=== PATIENT | male | born 1960 | race Hispanic/Latino ===

== ENCOUNTER 2016-05-24 18:40 | Emergency (ER) | payer OTHER ==
[2016-05-24 18:45] VITALS: BP 160/76; PULSE 81; RESP 18; TEMP 97.6; O2SAT 99
--- NOTE | 2016-05-24 18:58 | ED PDOC ---
Upper Extremity Pain/Injury Time Seen by Provider: 05/24/16 18:48 Chief Complaint (Nursing): Upper Extremity Problem/Injury Chief Complaint (Provider): Rt Shoulder Pain History Per: Patient History/Exam Limitations: no limitations Onset/Duration Of Symptoms: Hrs Current Symptoms Are (Timing): Still Present Severity: Mild Additional Complaint(s): Patient is a 56 year old male presenting to the ED complaining of right shoulder pain status post fall this morning. Patient reports he slipped on ice and fell directly onto his right shoulder. Patient reports worsening pain since this morning. PMD: none Past Medical History Reviewed: Historical Data, Nursing Documentation, Vital Signs Vital Signs: Last Vital Signs Temp 97.6 F 05/24/16 18:42 Pulse 81 05/24/16 18:42 Resp 18 05/24/16 18:42 BP 160/76 H 05/24/16 18:42 Pulse Ox 99 05/24/16 18:42 - Medical History PMH: No Chronic Diseases - Family History Family History: States: No Known Family Hx - Home Medications Home Medications: Ambulatory Orders Medication Instructions Recorded Acetaminophen with Codeine 1 tab PO Q6H PRN #15 tab 05/24/16 [Tylenol with Codeine No. 3 300 mg-30 mg] - Allergies Allergies/Adverse Reactions: Allergies Allergy/AdvReac Type Severity Reaction Status Date / Time aspirin Allergy VOMITING Verified 05/24/16 18:45 Review of Systems ROS Statement: Except As Marked, All Systems Reviewed And Found Negative Constitutional: Negative for: Fever Musculoskeletal: Positive for: Shoulder Pain (rt) Physical Exam - Reviewed Nursing Documentation Reviewed: Yes Vital Signs Reviewed: Yes - Physical Exam Appears: Positive for: Well, Non-toxic, No Acute Distress Head Exam: Positive for: ATRAUMATIC, NORMAL INSPECTION, NORMOCEPHALIC Skin: Positive for: Normal Color, Warm, DRY Eye Exam: Positive for: EOMI, Normal appearance, PERRL Cardiovascular/Chest: Positive for: Regular Rate, Rhythm. Negative for: Gallop , Murmur Respiratory: Positive for: Normal Breath Sounds. Negative for: Accessory Muscle Use, Rhonchi, Respiratory Distress Extremity: Positive for: Tenderness (acromium process tenderness to right shoulder). Negative for: Normal ROM (limited ROM secondary to pain) Neurologic/Psych: Positive for: Alert, Oriented - ECG O2 Sat by Pulse Oximetry: 99 (RA) Pulse Ox Interpretation: Normal Medical Decision Making Medical Decision Making: Time: 18:50 Impression: 56 y/o male with rt shoulder pain r/o Fx Plan: XR Rt Shoulder tylenol with Codeine 1 tab PO X-ray without acute findings, reviewed with Dr. Vicki Landry Attestation: Documented by Vonnie Ortega acting as a scribe for Azalia Kunz. Provider Attestation: All medical record entries made by the Scribe were at my direction and personally dictated by me. I have reviewed the chart and agree that the record accurately reflects my personal performance of the history, physical exam, medical decision making, and the department course for this patient. I have also personally directed, reviewed, and agree with the discharge instructions and disposition. Disposition - Clinical Impression Clinical Impression: Shoulder injury - Patient ED Disposition Is Patient to be Admitted: No Counseled Patient/Family Regarding: Diagnosis, Need For Followup, Rx Given - Disposition Referrals: Junior Salas MD [Staff Provider] - Disposition: Routine/Home Disposition Time: 20:02 Condition: GOOD Prescriptions: Acetaminophen with Codeine [Tylenol with Codeine No. 3 300 mg-30 mg] 1 tab PO Q6H PRN #15 tab PRN Reason: Pain, Severe (8-10) Instructions: Shoulder Sprain (ED)
[2016-05-24] MEDS ORDERED: Acetaminophen-Codeine 300/30 mg Tab ONE (19:04)
[2016-05-24] MEDS ORDERED: Acetaminophen-Codeine 300/30 mg Tab PO STA (19:09)
--- NOTE | 2016-05-25 11:51 | RAD ---
PROCEDURE: Radiographs of the Right Shoulder HISTORY: pain s/p fall COMPARISON: No prior. FINDINGS: BONES: There is mild bone demineralization. There is no acute fracture or bone destruction. JOINTS: Normal. Glenohumeral and acromioclavicular joints preserved. No osteoarthritis. SOFT TISSUES: NormalThere is linear calcification superior to the greater tuberosity of the humerus which may represent calcific tendinitis. OTHER FINDINGS: None. IMPRESSION: No acute fracture or dislocation.
== END 2016-05-24 20:39 | disposition home or self-care (01) ==
LOC: H.ER 18:40
DX: M25.511 Pain in right shoulder (principal)

== ENCOUNTER 2017-06-10 09:59 | Emergency (ER) | payer MEDICAID, OTHER ==
[2017-06-10 10:05] VITALS: BMI 29.2
[2017-06-10 10:06] VITALS: BP 183/91; PULSE 80; RESP 20; TEMP 97.6; O2SAT 100
[2017-06-10] MEDS ORDERED: Lidocaine 5% Patch TD STA (10:34)
--- NOTE | 2017-06-10 10:41 | ED PDOC ---
HPI: Back Time Seen by Provider: 06/10/17 10:18 Chief Complaint (Nursing): Back Pain Chief Complaint (Provider): back pain History Per: Patient History/Exam Limitations: no limitations Onset/Duration Of Symptoms: Days (years) Additional Complaint(s): Pt. with low back pain, ongoing for years. No new injury today. No numbness, tingles, weakness, incontinence, constipation. Ambulates with the pain. Pain goes to both knees. No calf pain. No cough, chest pain, dyspnea. No abd pain , dysuria. Does not take any meds for it. Homeless. Past Medical History Reviewed: Nursing Documentation, Vital Signs Vital Signs: Last Vital Signs Temp 97.6 F 06/10/17 10:05 Pulse 80 06/10/17 10:05 Resp 20 06/10/17 10:05 BP 183/91 H 06/10/17 10:05 Pulse Ox 100 06/10/17 10:05 - Medical History PMH: Anxiety, Back Problems, Depression, Diabetes (?), Hepatitis (Pt history and treatment), HTN, Kidney Stones Denies: HIV (Patient denied), Chronic Kidney Disease, Seizures (Patient denied), Sexually Transmitted Disease (Patient denied) - Family History Family History: States: Unknown Family Hx - Immunization History Hx Tetanus Toxoid Vaccination: No Hx Influenza Vaccination: No Hx Pneumococcal Vaccination: No - Home Medications Home Medications: Ambulatory Orders Medication Instructions Recorded Sertraline [Zoloft] 50 mg PO DAILY #30 tab 09/28/16 traZODone [Desyrel] 100 mg PO HS #30 tab 09/28/16 Ibuprofen [Motrin] 600 mg PO TID 7 Days tab 06/10/17 Lidocaine 5% [Lidoderm] 1 ea TD DAILY PRN #5 patch 06/10/17 - Allergies Allergies/Adverse Reactions: Allergies Allergy/AdvReac Type Severity Reaction Status Date / Time aspirin Allergy VOMITING Verified 05/24/16 18:45 Review of Systems ROS Statement: Except As Marked, All Systems Reviewed And Found Negative Musculoskeletal: Positive for: Back Pain, Leg Pain Physical Exam - Reviewed Nursing Documentation Reviewed: Yes Vital Signs Reviewed: Yes - Physical Exam Appears: Positive for: Non-toxic, No Acute Distress Head Exam: Positive for: ATRAUMATIC, NORMAL INSPECTION, NORMOCEPHALIC Skin: Positive for: Normal Color, Warm, DRY Neck: Positive for: Normal, Painless ROM Cardiovascular/Chest: Positive for: Regular Rate, Rhythm Respiratory: Positive for: CNT, Normal Breath Sounds Gastrointestinal/Abdominal: Positive for: Normal Exam, Bowel Sounds, Soft. Negative for: Tenderness Back: Positive for: Other (mild tender across lower back; straight leg pos at 60 * b/l). Negative for: L CVA Tenderness, R CVA Tenderness Extremity: Positive for: Normal ROM. Negative for: Tenderness, Pedal Edema Neurologic/Psych: Positive for: Alert, Oriented. Negative for: Motor/Sensory Deficits - ECG O2 Sat by Pulse Oximetry: 100 Pulse Ox Interpretation: Normal - Progress ED Course And Treament: 2308: Stable. AAOx3. Pain free. Tolerated PO. Fu with pcp. Ambulated with no issues. Disposition - Clinical Impression Clinical Impression: Chronic back pain - Patient ED Disposition Is Patient to be Admitted: Yes Counseled Patient/Family Regarding: Studies Performed, Diagnosis, Need For Followup, Rx Given - Disposition Referrals: [facility] [Outside] - 06/11/17 Disposition: Routine/Home Disposition Time: 11:10 Condition: STABLE Additional Instructions: Return if not better in 3 days. Prescriptions: Ibuprofen [Motrin] 600 mg PO TID 7 Days tab Lidocaine 5% [Lidoderm] 1 ea TD DAILY PRN #5 patch PRN Reason: Pain, Moderate (4-7) Instructions: Chronic Pain
== END 2017-06-10 11:20 | disposition home or self-care (01) ==
LOC: H.ER 09:59
DX: M54.9 Dorsalgia, unspecified (principal); G89.29 Other chronic pain; E11.9 Type 2 diabetes mellitus without complications

== ENCOUNTER 2017-10-30 18:52 | Emergency (ER) | payer MEDICAID, OTHER ==
[2017-10-30 18:52] VITALS: BMI 28.0
[2017-10-30 19:00] VITALS: TEMP 98.2
[2017-10-30 19:59] LABS: INR 1.3; PROTHROMBIN TIME 14.1 Seconds (9.8-13.1)
[2017-10-30 20:01] LABS: PARTIAL THROMBOPLASTIN TIME 37.5 Seconds (25.6-37.1)
[2017-10-30 20:36] LABS: ALB/GLOB RATIO 0.8 (1.0-2.1); ALBUMIN 3.6 g/dL (3.5-5.0); ALT/SGPT 70 U/L (21-72); AST/SGOT 174 U/L (17-59); BLOOD UREA NITROGEN 9 mg/dl (9-20); CALCIUM 9.4 mg/dL (8.4-10.2); GFR NON-AFRICAN AMERICAN > 60; LIPASE 68 U/L (23-300)
[2017-10-30 20:46] LABS: BASO # 0.2 K/uL (0.0-0.2); BASO % 1.9 % (0.0-2.0); EOS # 0.2 K/uL (0.0-0.7); EOS % 2.2 % (0.0-4.0); HEMOGLOBIN 10.5 g/dL (12.0-18.0); LYMPH # 2.5 K/uL (1.0-4.3); LYMPH % 24.4 % (20.0-40.0); MEAN CELL VOLUME 93.7 fl (80.0-94.0); MEAN CORPUSCULAR HEMOGLOBIN 32.1 pg (27.0-31.0); MEAN CORPUSCULAR HGB CONC 34.3 g/dL (33.0-37.0); MEAN PLATELET VOLUME 10.6 fl (7.2-11.7); MONO # 0.6 K/uL (0.0-0.8); MONO % 5.6 % (0.0-10.0); NEUT # 6.7 K/uL (1.8-7.0); NEUT % 65.9 % (50.0-75.0); NRBC % 0.1 % (0.0-0.0); RBC 3.26 Mil/uL (4.40-5.90); RED CELL DISTRIBUTION WIDTH 15.1 % (11.5-14.5); WHITE BLOOD COUNT 10.2 K/uL (4.8-10.8)
[2017-10-30] MEDS ORDERED: Iohexol 300 100 ML IJ ONE (21:47)
[2017-10-30] MEDS ORDERED: Sodium Chloride 0.9% 50 ML IV ONE (21:47)
--- NOTE | 2017-10-30 23:38 | ED PDOC ---
HPI: Abdomen Time Seen by Provider: 10/30/17 19:06 Chief Complaint (Nursing): Abdominal Pain Chief Complaint (Provider): Abdominal Pain History Per: Patient History/Exam Limitations: no limitations Onset/Duration Of Symptoms: Days (x1) Current Symptoms Are (Timing): Still Present Additional Complaint(s): 57 year old male with recent diagnosis of liver cancer presents to ED with complaints of lower, right abdominal pain ongoing since this morning. Patient is a poor historian, thus, history obtained from a recent [facility] admission in 10/2017. He reports a pending evaluation at [facility]. Otherwise: no vomiting, diarrhea, nausea, syncope, fever, or bloody stools. PMD: Dr. Mary Arce Past Medical History Reviewed: Historical Data, Nursing Documentation, Vital Signs Vital Signs: Last Vital Signs Temp 98.2 F 10/30/17 18:58 Pulse 67 10/30/17 18:58 Resp 16 10/30/17 18:58 BP 161/76 H 10/30/17 18:58 Pulse Ox 100 10/30/17 23:54 - Medical History PMH: Anxiety, Back Problems, Depression, Diabetes (?), Gastritis (Gall stones), Hepatitis (Pt history and treatment), HTN, Kidney Stones, Chronic Kidney Disease Denies: HIV (Patient denied), Seizures (Patient denied), Sexually Transmitted Disease (Patient denied) - Family History Family History: States: Unknown Family Hx - Immunization History Hx Tetanus Toxoid Vaccination: Yes Hx Influenza Vaccination: No Hx Pneumococcal Vaccination: No - Home Medications Home Medications: Ambulatory Orders Medication Instructions Recorded Apixaban [Eliquis] 5 mg PO BID #60 tab 10/04/17 oxyCODONE [oxyCODONE Immediate 15 mg PO QID #20 tab 10/04/17 Release Tab] Tamsulosin [Flomax] 0.4 mg PO DAILY #30 cap 10/22/17 - Allergies Allergies/Adverse Reactions: Allergies Allergy/AdvReac Type Severity Reaction Status Date / Time aspirin AdvReac VOMITING Verified 10/30/17 18:58 Review of Systems ROS Statement: Except As Marked, All Systems Reviewed And Found Negative Constitutional: Negative for: Fever Gastrointestinal: Positive for: Abdominal Pain (RLQ). Negative for: Nausea, Vomiting, Diarrhea, Hematochezia Neurological: Negative for: Other (syncope) Physical Exam - Reviewed Nursing Documentation Reviewed: Yes Vital Signs Reviewed: Yes - Physical Exam Appears: Positive for: No Acute Distress (chronic-ill appearance) Head Exam: Positive for: ATRAUMATIC, NORMAL INSPECTION, NORMOCEPHALIC Skin: Positive for: Jaundice. Negative for: Normal Color Eye Exam: Positive for: Normal appearance ENT: Positive for: Normal ENT Inspection Neck: Positive for: Normal Cardiovascular/Chest: Positive for: Regular Rate, Rhythm Respiratory: Positive for: Normal Breath Sounds. Negative for: Respiratory Distress Gastrointestinal/Abdominal: Positive for: Soft. Negative for: Tenderness Back: Positive for: Normal Inspection. 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 Negative for: Motor/Sensory Deficits, Aphasia - Laboratory Results Result Diagrams: 10/30/17 19:44 10/30/17 19:44 - ECG O2 Sat by Pulse Oximetry: 100 (RA) Pulse Ox Interpretation: Normal Medical Decision Making Medical Decision Making: Initial Plan: workup for abdominal complication of malignancy. * CT ABD/pelvis with IV contrast * EKG * Labs * Morphine 2mg IV Time: 2100 --Labs reviewed: stable hemoglobin and glucose. Slight worsening of total bilirubin. Time: 2256 --CT ABD/pelvis FINDINGS: Lung bases: Unremarkable. No mass. No consolidation. ABDOMEN: Liver: Hepatomegaly. Small perihepatic and perisplenic fluid. Gallbladder and bile ducts: Multiple small calcified gallstones are present. No ductal dilation. Pancreas: Unremarkable. No mass. No ductal dilation. Spleen: Splenomegaly measures up to 16 cm. Adrenals: Unremarkable. No mass. Kidneys and ureters: Unremarkable. No solid mass. No hydronephrosis. Stomach and bowel: Unremarkable. No obstruction. No mucosal thickening. PELVIS: Appendix: No findings to suggest acute appendicitis. Bladder: Unremarkable. No mass. Reproductive: Unremarkable as visualized. ABDOMEN and PELVIS: Intraperitoneal space: Unremarkable. No free air. No significant fluid collection. Bones/joints: No acute fracture. No dislocation. Soft tissues: Small fat containing umbilical hernia. Vasculature: Partially enhancing right hepatic lobe 3.8 x 3.1 cm mass with soft tissue opacification of the right portal vein is most consistent with a hepatic neoplasm with tumoral thrombus within the right portal vein. Moderate atherosclerotic calcifications are present in the abdominal aorta. The portal vein tumor extends into the medial aspect of the left portal vein. No abdominal aortic aneurysm. Lymph nodes: Unremarkable. No enlarged lymph nodes. IMPRESSION: 1. Partially enhancing right hepatic lobe 3.8 x 3.1 cm mass with soft tissue opacification of the right portal vein is most consistent with a hepatic neoplasm with tumoral thrombus within the right portal vein. 2. Hepatomegaly. 3. Splenomegaly measures up to 16 cm. 4. Cholelithiasis patient has eliquis with him, took dose in ED Otherwise no indication for admission as patient at clinical baseline, prior rec for palliative care, also needs followup [facility] allow to sleep in ED overnight for safe DC in am Scribe Attestation: Documented by Paola Duarte, acting as a scribe for Claudio Kramer III, DO. Provider Scribe Attestation: All medical record entries made by the Scribe were at my direction and personally dictated by me. I have reviewed the chart and agree that the record accurately reflects my personal performance of the history, physical exam, medical decision making, and the department course for this patient. I have also personally directed, reviewed, and agree with the discharge instructions and disposition. Disposition - Clinical Impression Clinical Impression: Jaundice, Portal vein thrombosis, Abdominal discomfort - Patient ED Disposition Is Patient to be Admitted: Yes Counseled Patient/Family Regarding: Studies Performed, Diagnosis - Disposition Disposition: Routine/Home Disposition Time: 00:00 Condition: STABLE Additional Instructions: Followup with [facility] and cancer doctors for further treatment. Take medications as directed. Instructions: Jaundice in Adults, Acute Abdomen (Belly Pain), Liver Cancer (DC) Forms: [employer] (Chinese)
[2017-10-31 06:22] VITALS: BP 162/74; PULSE 70; RESP 20; O2SAT 99
--- NOTE | 2017-10-31 07:29 | CARD ---
APPROVED REPORT Date of service: 10/30/2017 <Conclusion> Normal sinus rhythm Normal ECG
--- NOTE | 2017-10-31 14:29 | CT ---
Date of service: 10/30/2017 PROCEDURE: CT Abdomen and Pelvis with contrast HISTORY: RLQ pain history of liver CA COMPARISON: None. TECHNIQUE: CT scan of the abdomen and pelvis was performed after administration of intravenous contrast. Oral contrast was not administered. Coronal and sagittal reformatted images were obtained. Contrast dose: 95 cc Omnipaque 300 Radiation dose: Total exam DLP = 715.67 mGy-cm. This CT exam was performed using one or more of the following dose reduction techniques: Automated exposure control, adjustment of the mA and/or kV according to patient size, and/or use of iterative reconstruction technique. FINDINGS: LOWER THORAX: There is subsegmental atelectasis in the left lateral lower lobe. The lung bases are clear. LIVER: Enlarged fatty liver. There is a 3.1 x 3.6 cm ill-defined low-density lesion with eccentric increased vascularity in the right hepatic lobe. No ductal dilatation. GALLBLADDER AND BILE DUCTS: The gallbladder is distended without wall thickening or pericholecystic fluid. There are multiple gallstones. There is moderate diffuse dilatation of the common bile duct which measures 12 millimeters without evidence for choledocholithiasis. PANCREAS: Diffuse fatty atrophy. No gross lesion or ductal dilatation. SPLEEN: Mild splenomegaly. ADRENALS: No discrete nodule. KIDNEYS AND URETERS: Normal in size with homogeneous enhancement. No hydronephrosis. No solid mass. VASCULATURE: Atherosclerotic aortoiliac calcifications. No aortic aneurysm. The right portal vein is completely occluded with an intraluminal presumable tumor thrombus. BOWEL: The small bowel loops are normal in caliber. There is moderate amount of stool in the colon. No bowel dilatation or obstruction. APPENDIX: Normal appendix. PERITONEUM: There is small perihepatic ascites. No free air. LYMPH NODES: No enlarged lymph nodes. BLADDER: Grossly normal in appearance. REPRODUCTIVE: The prostate gland is normal in size. BONES: No acute fracture. There is diffuse bone demineralization and multilevel degenerative changes in the spine. OTHER FINDINGS: None. IMPRESSION: 3.1 x 3.6 cm hypoenhancing mass in the right hepatic lobe with presumable tumor thrombus in the right portal vein. Dedicated triphasic CT scan/MRI of the liver without and with intravenous contrast is recommended for definitive evaluation. Hepatosplenomegaly and fatty liver. Cholelithiasis. Moderate diffuse dilatation of the common bile duct without evidence for choledocholithiasis. A preliminary report was provided by [email or web address].
== END 2017-10-31 06:23 | disposition home or self-care (01) ==
LOC: H.ER 18:52
DX: E80.7 Disorder of bilirubin metabolism, unspecified (principal); I81 Portal vein thrombosis; R10.31 Right lower quadrant pain; C22.9 Malignant neoplasm of liver, not specified as primary or secondary; I12.9 Hypertensive chronic kidney disease with stage 1 through stage 4 chronic kidney disease, or unspecified chronic kidney disease; Z79.01 Long term (current) use of anticoagulants; K80.20 Calculus of gallbladder without cholecystitis without obstruction; R16.1 Splenomegaly, not elsewhere classified; R16.0 Hepatomegaly, not elsewhere classified; F32.9 Major depressive disorder, single episode, unspecified; F41.9 Anxiety disorder, unspecified; K76.0 Fatty (change of) liver, not elsewhere classified
CPT/HCPCS: 74177; 80053; 83690; 85025; 85610; 85730; 93005; 99284; J2270; Q9967